=== PATIENT | female | born 1985 | race Caucasian/White ===

== ENCOUNTER 2016-07-06 17:48 | Emergency (ER) | payer OTHER, BC ==
[~2016-07-06] VITALS: Ht 162.6 cm; Wt 81.3 kg
[~2016-07-06 17:48] MED LIST: ALLEGRA ALLERG180 MG PO; BIOTIN1000 MICRO PO; CLARITIN10 M3 PO; COZAAR100 MG PO; COZAAR50 MG PO; DAILY VITAMIN1 EAC8 PO; EXCEDRIN MIGRA1 EAC3 PO; FIORICET 50-301 EACH PO; HYDROCODON-ACE1 EAC7 PO; NOHOMEMEDS; OSTEO BI-FLEX1 EAC2 PO; SINGULAIR10 MG PO; TYLENOL EXTRA500 MG PO; VITAMIN D31000 UNI2 PO; WOMEN'S DAILY1 EAC1 PO
[2016-07-06 18:22] VITALS: BP 128/88
[2016-07-06] MEDS ORDERED: FLEXERIL10 MG PO (23:35)
== END 2016-07-07 00:44 | disposition home or self-care (01) ==
LOC: EME 17:48 → EXP 17:48
DX: S16.1XXA Strain of muscle, fascia and tendon at neck level, initial encounter (principal); V49.40XA Driver injured in collision with unspecified motor vehicles in traffic accident, initial encounter; Y99.0 Civilian activity done for income or pay; Z98.84 Bariatric surgery status
CPT/HCPCS: 99281; 99284

== ENCOUNTER 2017-12-02 23:32 | Emergency (ER) | payer OTHER, BC ==
[~2017-12-02] VITALS: Ht 162.6 cm; Wt 94.7 kg
[~2017-12-02 23:32] MED LIST changes: +FLEXERIL10 MG PO
[2017-12-02 23:36] VITALS: BP 131/70
[2017-12-03] MEDS ORDERED: NAPROSYN500 MG PO (00:42)
== END 2017-12-03 01:08 | disposition home or self-care (01) ==
LOC: EME 23:32
DX: S49.91XA Unspecified injury of right shoulder and upper arm, initial encounter (principal); W19.XXXA Unspecified fall, initial encounter; Y99.0 Civilian activity done for income or pay
CPT/HCPCS: 73030; 73060; 99281; 99284